=== PATIENT | female | born 1950 | race Two or more races ===

== ENCOUNTER 2022-04-07 11:48 | Emergency (ER) | payer OTHER, MEDICAID ==
[~2022-04-07] VITALS: Ht 167.6 cm; Wt 71.5 kg
[2022-04-07 12:29] LABS: Basophils # (auto) 0.1 10 ^3/uL (0-0.2); Eosinophils # (auto) 0.1 10 ^3/uL (0-0.8); Eosinophils % (auto) 1.6 % (0.0-7.0); Hematocrit 45.4 % (36.0-46.0); Hemoglobin 15.4 g/dL (12.2-16.2); Lymphocytes # (auto) 1.6 10 ^3/uL (0.4-5.4); Lymphocytes % (auto) 26.6 % (10.0-50.0); Mean Corpuscular Hemoglobin 30.9 pg (28.0-32.0); Mean Corpuscular Hgb Conc. 33.9 g/dL (32.0-36.0); Mean Corpuscular Volume 91.3 fL (80.0-100.0); Monocytes # (auto) 0.7 10 ^3/uL (0-1.3); Monocytes % (auto) 11.1 % (0.0-12.0); Neutrophils # (auto) 3.5 10 ^3/uL (1.6-8.6); Neutrophils % (auto) 59.7 % (37.0-80.0); Nucleated Red Blood Cells % 0.2 %; Red Blood Cells 4.97 10^6/uL (4.0-5.20); Red Cell Distribution Width 13.1 % (11.8-14.3); White Blood Cell 5.9 10^3/uL (4.4-10.8)
[2022-04-07 12:38] LABS: Urine Bacteria NONE SEEN /hpf (None Seen); Urine Blood Negative /uL (Negative); Urine Specific Gravity 1.006 (1.001-1.035); Urine WBC <1 /hpf (0 - 5)
[2022-04-07 12:46] LABS: Albumin 4.2 g/dL (3.4-5.0); Calcium 8.8 mg/dL (8.5-10.1); Potassium 4.3 mmol/L (3.5-5.1)
[2022-04-07 12:50] LABS: BUN/Creatinine Ratio 6.8; Bilirubin, Total 0.6 mg/dL (0.2-1.0); Total Protein 8.1 g/dL (6.4-8.2)
[2022-04-07] MEDS ORDERED: IOHEXOL 300 MG/ML 100ML BOTTLE IJ ONE (16:38)
[2022-04-07 19:08] VITALS: BP 139/79
== END 2022-04-07 19:10 | disposition home or self-care (01) ==
LOC: ER 11:48
DX: K57.30 Diverticulosis of large intestine without perforation or abscess without bleeding (principal)
CPT/HCPCS: 36415; 74177; 80053; 81001; 82150; 83690; 84484; 85025; 93005; 99285; Q9967